=== PATIENT | female | born 1960 | race African-American/Black ===

== ENCOUNTER 2017-09-07 04:07 | Emergency (ER) | payer OTHER ==
[~2017-09-07] VITALS: Ht 180.3 cm; Wt 65.8 kg
[~2017-09-07 04:07] MED LIST: ACETAMINOPHEN-1 EAC1 ORAL; BENADRYL25 MG PO; CYCLOBENZAPRINE10 MG ORAL; DOXYCYCLINE MO100 MG ORAL; GUAIFENESIN-CO118 M1 ORAL; IBUPROFEN600 MG ORAL; IBUPROFEN800 MG ORAL; LEVAQUIN750 MG ORAL; MACROBID100 MG ORAL; NITROFURANTOIN100 M2 ORAL; NKM; NORCO 5-325 TA1 EACH ORAL; ZITHROMAX250 MG ORAL
[2017-09-07 04:20] VITALS: BP 113/81
--- NOTE | 2017-09-07 04:35 | Emergency Room Report ---
History of Present Illness General Chief Complaint: Upper Respiratory Illness Source: Patient Present Illness HPI Is a 57 female with no significant past medical history. She presents with chief complaint of congestion and cough. His been ongoing for 2 months. No relief with [id number] medication. Coughing is productive of phlegm. No fever or chills. No nausea no vomiting. Has tightness in her chest. Described as burning sensation from coughing. Has not seen her Dr. for it. Allergies: Coded Allergies: No Known Allergies (Unverified , 01/03/13) Patient History Past Medical History: see triage record, old chart reviewed Past Surgical History: other Pertinent Family History: none Social History: Denies: smoking Last Menstrual Period: na Now: No Immunizations: other Reviewed Nursing Documentation: PMH: Agreed, PSxH: Agreed Nursing Documentation-PMH Past Medical History: No Stated History Review of Systems Eye: Reports: nose congestion ENT: Reports: nose congestion, throat pain Respiratory: Reports: cough, shortness of breath Cardiovascular: Denies: chest pain, palpitations Gastrointestinal: Denies: abdominal pain, diarrhea, nausea, vomiting Musculoskeletal: Denies: back pain, joint pain Skin: Denies: rash Neurological: Denies: headache, numbness Endocrine: Denies: increased thirst, increased urine Hematologic/Lymphatic: Denies: easy bruising All Other Systems: negative except mentioned in HPI Physical Exam Vital Signs Date Time Temp Pulse Resp B/P (MAP) Pulse Ox O2 Delivery O2 Flow Rate FiO2 09/07/17 04:14 98.8 72 16 104/68 96 Room Air vitals normal Sp02 EP Interpretation: reviewed, normal General Appearance: well appearing, no apparent distress, alert Head: normocephalic, atraumatic Eyes: bilateral eye PERRL, bilateral eye EOMI ENT: hearing grossly normal, normal pharynx, tonsillar swelling Neck: full range of motion, supple, no meningismus Respiratory: chest non-tender, lungs clear, normal breath sounds, other - Coughing with inspiration Cardiovascular #1: regular rate, rhythm, no murmur Gastrointestinal: normal bowel sounds, non tender, no mass, no organomegaly, no bruit, non-distended Musculoskeletal: back normal, gait/station normal, normal range of motion Psychiatric: mood/affect normal Skin: warm/dry Medical Decision Making Diagnostic Impression: Primary Impression: Upper respiratory infection Qualified Codes: J06.9 - Acute upper respiratory infection, unspecified Additional Impression: Atypical pneumonia ER Course Patient presents with a cough for 2 months. X-ray unremarkable. This may be atypical pneumonia and because of the duration well will put her on antibiotics. Better after breathing treatment. Chest X-Ray Diagnostic Results Chest X-Ray Diagnostic Results : Chest X-Ray Ordered: Yes # of Views/Limited/Complete: 1 View Indication: Shortness of Breath EP Interpretation: Yes Interpretation: no consolidation, no effusion, no pneumothorax, no acute cardiopulmonary disease Impression: No acute disease Electronically Signed by: Zackary Kowalski MD Last Vital Signs Date Time Temp Pulse Resp B/P (MAP) Pulse Ox O2 Delivery O2 Flow Rate FiO2 09/07/17 04:14 98.8 72 16 104/68 96 Room Air Status: improved Disposition: HOME, SELF-CARE Condition: Stable Scripts Azithromycin* (ZITHROMAX*) 250 Mg Tablet 250 MG ORAL DAILY, #6 TAB 0 Refills Take two tablets by mouth today, then take one tablet by mouth daily for four days Prov: ZACKARY KOWALSKI M.D. 09/07/17 Prednisone* (PREDNISONE*) 20 Mg Tablet 60 MG ORAL DAILY, #12 TAB Prov: ZACKARY KOWALSKI M.D. 09/07/17 Albuterol Sulfate* (ALBUTEROL SULFATE MDI*) 8.5 Gm Hfa.aer.ad 2 PUFF INH Q4H Y for cough/wheezing, #1 EA 0 Refills Prov: ZACKARY KOWALSKI M.D. 09/07/17 Patient Instructions: Upper Respiratory Infection, Adult Additional Instructions: Followup with your DrJeremi in 7 days. Return if symptom worsen. ZACKARY KOWALSIK M.D. Sep 07, 2017 04:35
[2017-09-07] MEDS ORDERED: Albuterol/Ipratropium 3ml neb HHN ONE (04:45)
[2017-09-07] MEDS ORDERED: AZITHROMYCIN250 MG ORAL (05:11)
[2017-09-07] MEDS ORDERED: PREDNISONE20 MG ORAL (05:11)
[2017-09-07] MEDS ORDERED: ALBUTEROL SULF8.5 GM INH (05:11)
[2017-09-07 05:15] VITALS: BP 107/79
[2017-09-07 05:20] VITALS: BP 107/79
--- NOTE | 2017-09-07 09:36 | Diagnostic Imaging Report ---
Indication: Reason For Exam: COUGH Technique: One view of the chest Comparison: Findings: Lungs and pleural spaces are clear. Heart size is normal . There are degenerative changes of the left shoulder Impression: No acute process
== END 2017-09-07 05:20 | disposition home or self-care (01) ==
LOC: EMR 04:22
DX: J06.9 Acute upper respiratory infection, unspecified (principal)
CPT/HCPCS: 71045; 94640; 94664; 99284; J7512; J7620